=== PATIENT | female | born 1935 | race Caucasian/White ===

== ENCOUNTER → 2017-12-27 | Outpatient (CLI) | payer OTHER ==
[~2017-12-27] MED LIST: ASPI81CH PO; ASPI81EC PO; Aspirin EC81 MG PO; CHOL10002; CHOL10002 PO; DILT120ERA PO; DOCU100 PO; FISH1000 PO; FLAXSEED OIL1000 MG PO; Flecainide Acet50 MG PO; GLAUCOMA EYE DROPS; LATA.005SO BOTHEYES; LISHYD1012 PO; LISHYD2012 PO; METF500 PO; METO100 PO; METO50 PO; OMEP20ER PO; Ocuvite Preser1 EACH PO; PANT40 PO; SIMV40 PO; ZESTORETIC 20-121 E1 PO; [UNRECOGNIZED DRUG - OTHER]
== END | disposition home or self-care (01) ==
LOC: LAB SHORT 13:24 → LAB 13:24
DX: L03.032 Cellulitis of left toe (principal)
CPT/HCPCS: 87070; 87077; 87186; 87205

== ENCOUNTER 2018-02-07 14:17 | Emergency (ER) | payer OTHER ==
[~2018-02-07] VITALS: Ht 167.6 cm; Wt 80.7 kg
[2018-02-07] MEDS ORDERED: SIMV5 PO (15:32)
[2018-02-07] MEDS ORDERED: GLIM2 PO (15:32)
[2018-02-07] MEDS ORDERED: Norco 5-325 Ta1 EACH PO (16:47)
[2018-02-07] MEDS ORDERED: Solaraze100 GM TOP (16:47)
[2018-02-07] MEDS ORDERED: Cyclobenzaprine5 MG PO (16:47)
== END 2018-02-07 19:07 | disposition home or self-care (01) ==
LOC: ER 14:17
DX: M48.061 Spinal stenosis, lumbar region without neurogenic claudication (principal); M54.16 Radiculopathy, lumbar region; Z88.5 Allergy status to narcotic agent; Z88.8 Allergy status to other drugs, medicaments and biological substances; Z79.899 Other long term (current) drug therapy; Z79.84 Long term (current) use of oral hypoglycemic drugs; Z79.82 Long term (current) use of aspirin; Z87.891 Personal history of nicotine dependence
CPT/HCPCS: 72131; 99284

== ENCOUNTER → 2019-02-19 | Outpatient (CLI) | payer OTHER ==
[~2019-02-19] MED LIST changes: +Cyclobenzaprine5 MG PO; +GLIM2 PO; +Norco 5-325 Ta1 EACH PO; +SIMV5 PO; +Solaraze100 GM TOP
[2019-02-19 09:32] LABS: Source, Urine Clean Catch
[2019-02-19 10:39] LABS: Appearance, Urine Cloudy (Clear); Bilirubin, Urine Neg (Neg); Blood, Urine 4+ (Neg); Color, Urine Yellow (P-Yellow); Glucose Qualitative, Urine Neg (Neg); Ketones, Urine Neg (Neg); Leukocyte Esterase, Urine 3+ (Neg); Nitrite, Urine Pos (Neg); Protein, Urine 2+ (Neg); Specific Gravity, Urine 1.015 (1.003-1.022); Urobilinogen, Urine NORM (Normal)
[2019-02-19 11:58] LABS: Squamous Epithelial Cells Rare /hpf (Few); White Blood Cells, Urine TNTC /hpf (0-5)
[2019-02-19 11:59] LABS: Bacteria Many /hpf
== END | disposition home or self-care (01) ==
LOC: LAB SHORT 09:29 → LAB 09:29
PROVIDERS: Internal Medicine
DX: N39.0 Urinary tract infection, site not specified (principal)
CPT/HCPCS: 81001; 87077; 87086; 87186

== ENCOUNTER → 2021-01-05 | Outpatient (CLI) | payer OTHER | LOC: LAB 18:15 → LAB SHORT 18:15 | DX: N89.8 Other specified noninflammatory disorders of vagina (principal); R30.0 Dysuria | CPT/HCPCS: 87077; 87086; 87186 ==

== ENCOUNTER 2021-12-06 05:52 | Day surgery (SDC) | payer OTHER ==
[~2021-12-06] VITALS: Ht 167.6 cm; Wt 85.0 kg
[~2021-12-06 05:52] MED LIST changes: +ATOR10 PO; +ELIQUIS2.5 MG PO; +FURO20 PO; +LISI10 PO; +Premarin 225 MG/5 ML; -ZESTORETIC 20-121 E1 PO
--- NOTE | 2021-12-06 09:59 | NUR ---
AIR REMOVED FROM PT R RADIAL TR BAND. NO BLEEDING OR HEMATOMA NOTED. VSS. NADN. PT DENIES NEEDS.
--- NOTE | 2021-12-06 10:25 | NUR ---
TR BAND FULLY DEFLATED. NO BLEEDING OR HEMATOMA NOTED. VSS. NADN.
--- NOTE | 2021-12-06 11:14 | NUR ---
PT TR BAND REMOVED. DOT DRESSING APPLIED WITH SPLINT W/ SLING. PT ASSISTED WITH DRESSING SELF. TOLERATES WELL. VSS. NADN. PT IV DC'D. CATH INTACT. PRESSURE DSG APPLIED. PT DC TO HOME VIA WC BY FRIEND.
== END 2021-12-06 12:00 | disposition home or self-care (01) ==
LOC: MHTC 05:52
DX: I08.0 Rheumatic disorders of both mitral and aortic valves (principal); I25.10 Atherosclerotic heart disease of native coronary artery without angina pectoris; I48.19 Other persistent atrial fibrillation; E78.5 Hyperlipidemia, unspecified; I13.0 Hypertensive heart and chronic kidney disease with heart failure and stage 1 through stage 4 chronic kidney disease, or unspecified chronic kidney disease; E11.22 Type 2 diabetes mellitus with diabetic chronic kidney disease; I50.30 Unspecified diastolic (congestive) heart failure; N18.9 Chronic kidney disease, unspecified; Z79.01 Long term (current) use of anticoagulants; Z88.5 Allergy status to narcotic agent; Z88.8 Allergy status to other drugs, medicaments and biological substances
CPT/HCPCS: 93454; 99152; 99153; C1769; C1887; C1894; J1644; J2250; J3010; J7030; Q9967

== ENCOUNTER → 2022-07-11 | Outpatient (CLI) | payer OTHER ==
[2022-07-11 15:51] LABS: Source, Urine Clean Catch
[2022-07-11 16:23] LABS: Appearance, Urine Clear (Clear); Bilirubin, Urine Neg (Neg); Blood, Urine Neg (Neg); Color, Urine Yellow (P-Yellow); Glucose Qualitative, Urine Neg (Neg); Ketones, Urine Neg (Neg); Leukocyte Esterase, Urine Neg (Neg); Nitrite, Urine Neg (Neg); Protein, Urine Neg (Neg); Urobilinogen, Urine NORM (Normal)
[2022-07-11 17:14] LABS: Creatinine, Urine Random 45.2 mg/dL (27.00-270.00)
[2022-07-11 17:30] LABS: Protein, Urine Random 6.2 mg/dL (0.0-11.9)
[2022-07-11 17:43] LABS: Protein/Creat Ratio, Ur Random 0.1
== END | disposition home or self-care (01) ==
LOC: LAB 15:49 → LAB SHORT 15:49
PROVIDERS: Internal Medicine Nephrology
DX: N18.31 Chronic kidney disease, stage 3a (principal)
CPT/HCPCS: 81003; 82570; 84156

== ENCOUNTER → 2022-09-12 | Outpatient (CLI) | payer OTHER | END | disposition home or self-care (01) | LOC: PLD 12:52 → LAB SHORT 12:52 | DX: L82.1 Other seborrheic keratosis (principal) | CPT/HCPCS: 88305 ==

== ENCOUNTER → 2023-03-06 | Outpatient (CLI) | payer OTHER ==
[2023-03-06 14:29] LABS: Source, Urine Clean Catch
[2023-03-06 15:33] LABS: Appearance, Urine Hazy (Clear); Bilirubin, Urine Neg (Neg); Blood, Urine 2+ (Neg); Color, Urine Yellow (P-Yellow); Glucose Qualitative, Urine Neg (Neg); Ketones, Urine Neg (Neg); Leukocyte Esterase, Urine 3+ (Neg); Nitrite, Urine Neg (Neg); Protein, Urine 2+ (Neg); Urobilinogen, Urine NORM (Normal); pH, Urine 6.5 (5.0-8.0)
[2023-03-06 15:47] LABS: Bacteria Many /hpf; Squamous Epithelial Cells Mod /hpf (Few); White Blood Cells, Urine TNTC /hpf (0-5)
[2023-03-06 15:48] LABS: Transitional Epithelial Cells Rare /hpf (0-Rare)
== END | disposition home or self-care (01) ==
LOC: LAB SHORT 10:55 → LAB 10:55
PROVIDERS: Hospitalist
DX: N18.4 Chronic kidney disease, stage 4 (severe) (principal)
CPT/HCPCS: 81001; 87077; 87086; 87186

== ENCOUNTER 2023-08-02 07:48 | Emergency (ER) | payer OTHER ==
[~2023-08-02] VITALS: Ht 167.6 cm; Wt 79.4 kg
[2023-08-02 07:55] VITALS: BP 151/86
[2023-08-02 09:31] LABS: Influenza A, PCR NEGATIVE (NEGATIVE); Influenza B, PCR NEGATIVE (NEGATIVE); Resp Syncytial Virus, PCR NEGATIVE (NEGATIVE); SARS-Cov-2 (COVID-19) PCR, MMC NEGATIVE (NEGATIVE)
[2023-08-02] MEDS ORDERED: Amoxicillin875 MG PO (10:53)
[2023-08-02] MEDS ORDERED: ALBU90OI INH (10:53)
== END 2023-08-02 12:10 | disposition home or self-care (01) ==
LOC: ER 07:48
PROVIDERS: Emergency Medicine
DX: J18.9 Pneumonia, unspecified organism (principal); E11.9 Type 2 diabetes mellitus without complications; Z20.822 Contact with and (suspected) exposure to COVID-19; Z88.5 Allergy status to narcotic agent; Z88.8 Allergy status to other drugs, medicaments and biological substances; Z79.899 Other long term (current) drug therapy; Z79.01 Long term (current) use of anticoagulants; Z95.0 Presence of cardiac pacemaker; Z87.891 Personal history of nicotine dependence
CPT/HCPCS: 0241U; 71045; 93005; 93010; 94640; 94664; 99285-25